=== PATIENT | male | born 1975 | race Caucasian/White ===

== ENCOUNTER 2023-05-08 08:30 | Emergency (ER) | payer BC, SELFPAY ==
--- NOTE | ~2023-05-08 | XR_ITS ---
AP and oblique views of the right ribs, and PA chest radiograph Clinical History: Pain Findings: No rib fracture is seen. Osseous alignment is anatomic. Lungs are clear, without focal cons olidation or pleural effusion. Cardiomediastinal contour is within normal limits. Soft tissues are un remarkable. Impression: No rib fracture is seen. Reviewed, dictated and finalized at [facility]. URAL CENTRE MANAGER Impression: No rib fracture is seen.
--- NOTE | 2023-05-08 08:32 | ED.SOB ---
HPI - SOB/Dyspnea General Chief Complaint: Fall Stated Complaint: Rib pain;Hard to breath Time Seen by Provider: 05/08/23 08:32 Source: patient Mode of arrival: ambulatory Limitations: no limitations History of Present Illness HPI Narrative: Jacobo is a 48-year-old male patient presenting to the clinic today with complaints of right rib pain and difficulty breathing x1 day. He reports he was playing football with his teenagers yesterday and he fell and landed on his right ribs. Reports right anterior and lateral rib pain. Rates his pain 12/03. Related Data Home Medications Medication Instructions Recorded Confirmed enalapril maleate 20 mg tablet 20 mg PO DAILY 04/21/21 05/08/23 (Vasotec) escitalopram oxalate 20 mg tablet 20 mg PO DAILY 05/08/23 05/08/23 valsartan 320 1 tablet PO DAILY 05/08/23 05/08/23 mg-hydrochlorothiazide 25 mg tablet Allergies Allergy/AdvReac Type Severity Reaction Status Date / Time No Known Allergies Allergy Verified 05/08/23 08:34 Review of Systems Review of Systems: Pertinent positives per HPI. Patient denies any fever, chills, rash, headache, visual changes, dizziness, cough, runny nose, sore throat, chest pain, palpitations, nausea, vomiting, diarrhea, constipation, abdominal pain, or any urinary issues. [facility] Family History Family History Father Alcoholism Depression Anxiety Cerebrovascular accident Mother Hypertension Depression Anxiety Grandparent Cancer Social History Social History Smoking status: Never smoker Alcohol intake: current Substance use: never Comments At the time of my signature, I reviewed and agree with the nursing past medical, surgical, social, and family history. There is no relevant family history pertinent to the patient complaint. Exam Narrative: General: Well-developed, well nourished, in no apparent distress Head: Normocephalic, atraumatic Eyes: Pupils equally round and reactive to light bilaterally, EOM intact, sclera and conjunctive clear, no discharge, lids normal Ears: TMs intact and clear, ear canals clear, no drainage, grossly hearing normal. Nose: Nares patent, no discharge, no inflammation, no sinus tenderness. Mouth: Oropharynx without lesions or masses, good dentition, MMM. Neck: Supple, trachea midline, no enlargement of anterior or posterior cervical nodes, no thyroid masses or goiter palpable. Chest wall: No swelling or bruising noted, even rise and fall of the chest wall with respirations, tender to palpation over the right anterior and lateral chest wall. Cardio: Regular rate and rhythm, s1 and s2 normal, no murmur appreciated. Resp: Clear to auscultation bilaterally anteriorly and posteriorly, no rhonchi, rales, wheezing or rubs Course Course Emergency Course: Portions of this record may have been created with voice recognition software. Level of Care: Express Care Visit Vital Signs Vital signs: Vital signs reviewed MDM - SOB/Dyspnea MDM Narrative Medical decision making narrative: At the time of visit patient is resting comfortably on exam table. Right rib x-ray was completed and was negative for any sign of fracture or malalignment. I suspect patient has a rib contusion. Supportive measures were discussed with the patient he voiced understanding discharge instructions and agrees to treatment plan. Differential Diagnosis Differential diagnosis: Likely other (Pneumothorax, rib fracture, rib contusion, pneumonia, pleurisy) Imaging Data Radiologist's impression: ITS Impressions Ribs w/Chest X-Ray 05/08/23 09:05 Impression: No rib fracture is seen. Discharge Plan Discharge Clinical Impression: Contusion of rib on right side Qualifiers: Encounter type: initial encounter Qualified Code(s): S20.211A - Contusion of right front wall of thorax, i
[2023-05-08 08:43] VITALS: BP 174/118; PULSE 76; RESP 16; TEMP 36.6; O2SAT 98
== END 2023-05-08 09:15 | disposition home or self-care (01) ==
PROVIDERS: Emergency Provider Nurse Practitioner Family; PCP Physician Assistant
DX: S20.211A Contusion of right front wall of thorax, initial encounter (principal); W19.XXXA Unspecified fall, initial encounter; Y93.61 Activity, american tackle football; E78.00 Pure hypercholesterolemia, unspecified; I10 Essential (primary) hypertension
CPT/HCPCS: 71101; 99213; G0463

== ENCOUNTER 2024-07-15 08:41 | Outpatient (CLI) | payer BC, SELFPAY ==
--- NOTE | ~2024-07-15 | US_ITS ---
Limited Abdominal Sonogram: Real-time sonographic imaging of the right upper quadrant was performed. Clinical History: Fatty liver Findings: The liver appears echogenic, with no evidence of mass lesion or bile duct dilatation. It m easures 23 cm in length. Main portal vein demonstrates normal direction of flow. The gallbladder is w ell distended, and appears normal with no evidence of gallstone or wall thickening. The common bile d uct measures 5 mm. The visualized pancreas, aorta, and IVC are unremarkable. Impression: Diffuse fatty infiltration of liver, with associated hepatomegaly. Reviewed, dictated and finalized at location M. L GEAR GENERATOR OPERATOR Impression: Diffuse fatty infiltration of liver, with associated hepatomegaly.
--- NOTE | ~2024-07-15 | US_ITS ---
EXAMINATION: US retroperitoneal duplex ltd DATE: 07/15/2024 09:04 INDICATION: Hypertension. TECHNIQUE: Multiple grayscale, color Doppler, and pulsed Doppler images of the kidneys and renal tahir ekta were obtained. COMPARISON: None. FINDINGS: The aorta peak systolic velocity is 87 cm/s. The right renal artery peak systolic velocity is 38 cm/s in the proximal segment, 52 cm/s in the mid segment, and 53 cm/s in the distal segment. The left sukhjinder al artery peak systolic velocity is 59 cm/s in the proximal segment, 35 cm/s in the mid segment, and 48 cm/s in the distal segment. IMPRESSION: 1. No Doppler evidence of renal artery stenosis. Reviewed, dictated and finalized at location B. ICE AIDE
== END 2024-07-15 08:42 | disposition home or self-care (01) ==
PROVIDERS: PCP Physician Assistant; Visit Provider Physician Assistant
DX: K76.0 Fatty (change of) liver, not elsewhere classified (principal); I10 Essential (primary) hypertension
CPT/HCPCS: 76705; 93976

== ENCOUNTER 2025-02-11 01:20 | Day surgery (SDC) | payer BC, SELFPAY ==
[2025-01-30 12:05] VITALS: BMI 32.8
--- OUTSIDE RECORDS SUMMARY | 2025-02-11 01:24 | XMS_ITS | Encounter Summary ---
Author Organization [facility] Address 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 TOBACCO USE Patient does not currently use tobacco. MEDICATIONS: Patient is taking no medications at present. CHIEF COMPLAINT bump on base of penis x 1 1/2 wks, (R) shoulder pain x 1 1/2 mos. 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 Sxs havenow returned and would likle to get them treated HISTORY OF PRESENT ILLNESS: PAIN: Pain noted in the right shoulder. Date of onset is uncertain. There was no bruising. The symptoms have been worsening recently. The pain is described as aching, dull. The pain is described as occurring at night with inability to sleep. Stiffness is present with inactivity, with prolonged sitting. Moderate weakness present. The patient notes limitation of normal daily activities often. Symptoms are aggravated by extension. Pain modifying factors not noted. CURRENT PROBLEM LIST: 786.50 CHEST PAIN UNSPECIFIED V17.3 FAMILY HISTORY OF ISCHEMIC HEART DISEASE V18.0 FAMILY HISTORY OF DIABETES MELLITUS V70.0 ROUTINE GENERAL MEDICAL EXAMINATION CURRENT MEDICATION LIST: CURRENT ALLERGY LIST: NKDA ROS: GENERAL: Normal activity and energy level, no change in appetite. No major weight gain or loss. No malaise, chills, fever, diaphoresis. CARDIAC: No chest pain, palpitations, orthopnea, dyspnea on exertion, or paroxysmal nocturnal dyspnea. RESPIRATORY: No dyspnea, cough, hemoptysis or wheezing. SKIN/BREAST/CHEST: See HISTORY OF PRESENT ILLNESS. GI: No abdominal pain, nausea, vomiting, diarrhea, constipation, melena, or hematochezia. MUSCULOSKELETAL: See HISTORY OF PRESENT ILLNESS. SOCIAL HISTORY: TOBACCO USE: Has no significant smoking history. PHYSICAL EXAMINATION: CONSTITUTIONAL: GENERAL APPEARANCE: Healthy appearing patient in no distress. EARS, NOSE, MOUTH AND THROAT: ORAL: Inspection of gums, lips, palate, and teeth normal. No scars, lesions, or masses. Oral mucosa unremarkable with non-inflamed posterior pharynx. NECK/THYROID: Trachea midline. No thyroid enlargement, tenderness, or mass. No supraclavicular or cervical adenopathy. RESPIRATORY: Clear to auscultation and percussion. Normal respiratory effort. CARDIOVASCULAR: CARDIAC: Regular rhythm. No murmurs, rubs, or gallops. EDEMA/VARICOSITIES OF EXTREMITIES: No edema or varicosities. LYMPHATICS: No lymphadenopathy in the neck, no supraclavicular lymphadenopathy noted. MUSCULOSKELETAL EXAM: EXTREMITIES: RIGHT UPPER: SUBACROMIUM BURSA TENDERNESS NOTED, SUBDELTOID BURSA TENDERNESS NOTED, full shoulder abduction, full shoulder extension, full shoulder flexion, REDUCED SHOULDER EXTERNAL ROTATION, REDUCED SHOULDER INTERNAL ROTATION. SKIN: RASH/LESION #1 LOCATION: Genitalia. CHARACTERISTICS: The lesion is flesh colored. The rash is papular. The lesion border is asymmetrical. The lesion surface is raised. The lesions are grouped. ASSESSMENT Lesion of uncertain type. hpv TREATMENT Cryotherapy was performed. BIOPSY/LESION: Liquid nitrogen cryotherapy was recommended. The procedure, including risks and potential complications, such as infection, scarring, blistering and hypopigmentation was explained. Thepatient understood and wished to proceed with treatment. The lesion was treated with liquid nitrogen resulting in freezing of the entire lesion and 1-2 mm of surrounding skin. ASSESSMENT/PLAN: 078.11-OTHER DISEASES DUE TO VIRUSES AND CHLAMYDIAE ASSESSMENT: The risks and potential complications of the procedure were discussed with the patient,including blister formation, infection and hypopigmentation. Liquid nitrogen was then applied to the lesion. LAB ORDERS: Order number: [id number] Test Ordered: DESTRUCTION BENIGN LESIONS UP TO 14 30369 719.41-PAIN JOINT SHOULDER ASSESSMENT: The patient's shoulder pain has worsened. Will start medication for better control. will begin lodine and start PT. foster need MRI [place] VISIT : [place] [id number] Electronically Signed by: Derick العراقي DO on April documented in this encounter Plan of Treatment Not on file documented as of this encounter Visit Diagnoses Not on filedocumented in this encounter Care Teams Medicine Technologist Relationship Specialty Start Date End Date Benito Encarnacion MD [address] [place] [address] PCP - General 08/22/06 documented as of this encounter
--- OUTSIDE RECORDS SUMMARY | 2025-02-11 01:24 | XMS_ITS | Encounter Summary ---
Author Organization [facility] Address [address] [place] [address] Care Team Providers Care Tax Associate Name Role Phone Benito Encarnacion MD Primary Care Provider [phone] Encounter Details Date Type Department Care Team (Late st Contact Info) Description 05/24/2007 Outpatient Historical [facility] Internal Medicine 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 MOTEL KEEPER Gender Identity Not on file Sexual Orientation Not on file documented as of this encounter Last Filed Vital Signs Vital Sign Reading Time Taken Comments Blood Pressure - - Pulse - - Temperature - - Respiratory Rate - - Oxygen Saturation - - Inhaled Oxygen Concentration - - Weight 108 kg (238 lb) 05/24/2007 9:15 AM MOTEL KEEPER Height - - Body Mass Index - - documented in this encounter Plan of Treatment Not on file documented as of this encounter Visit Diagnoses Not on filedocumented in this encounter Care Teams Tax Associate Relationship Specialty Start Date End Date Benito Encarnacion MD [address] [place] [address] PCP - General 08/22/06 documented as of this encounter
--- OUTSIDE RECORDS SUMMARY | 2025-02-11 01:24 | XMS_ITS | Encounter Summary ---
Author Organization [facility] Address [address] [place] [address] Care Team Providers Care Assembler For Puller Over Hand Name Role Phone Benito Encarnacion MD Primary Care Provider Encounter Details Date Type Department Care Team (Late st Contact Info) Description 05/29/2007 Outpatient Historical [facility] Internal Medicine [address] [place] [address] Derick العراقي DO [address] [place] [address] Social History Tobacco Use Types Packs/Day Years Used Date Smoking Tobacco: Never Assessed Sex and Gender Information Value Date Recorded Sex Assigned at Not on file Legal Sex Male 2:39 AM COMBATANT DIVER QUALIFIED Gender Identity Not on file Sexual Orientation Not on file documented as of this encounter Plan of Treatment Not on file documented as of this encounter Visit Diagnoses Not on filedocumented in this encounter Care Teams Assembler For Puller Over Hand Relationship Specialty Start Date End Date Benito Encarnacion MD [address] [place] [address] PCP - General 08/22/06 documented as of this encounter
--- OUTSIDE RECORDS SUMMARY | 2025-02-11 01:25 | XMS_ITS | Encounter Summary ---
Author Organization [facility] Address [address] [place] [address] Care Team Providers Care Medical Support Assistant Name Role Phone Benito Encarnacion MD Primary Care Provider [phone] Encounter Details Date Type Department Care Team (Late st Contact Info) Description 09/01/2008 Outpatient Historical [facility] [address] [place] [address] [address] [place] [address] Derick العراقي, DO [address] 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
--- OUTSIDE RECORDS SUMMARY | 2025-02-11 01:25 | XMS_ITS | Patient Health Record ---
Author Organization Formerly [facility] [place] ([address]) Address [address] [place] [address] Care Team Providers Care Terminal Gauger Name Role Phone SedamichaelCherelle Primary Care Provider Sasha Edwards Unavailable [phone] Allergies No Known Allergies Reason For Referral No Information Medications Medication SIG (Take, Route, Frequency, Duration) Notes Start Date End Date Status Amoxicillin-Pot Clavulanate 875-125 MG 1 tablet Orally every 12 hrs; Duration: 10 days 07/17/2024 Active Valsartan-hydroCHLOROthiazid e 160-12.5 MG 1 tablet Orally Once a day Active Colchicine 0.6 MG Oral; Duration: 3 Days Active Triamcinolone Acetonide 0.5 % External; Duration: 30 Days Active Cetirizine HCl 10 MG 1 tablet Orally Onc e a day; Duration: 30 days 07/17/2024 Active Fluticasone Propionate 50 MCG/ACT 2 sprays in each nostril Nasally Twice a day; Duration: 30 days 07/17/2024 Active Social History Tobacco Use: Social History Observation Description Date Details (start date - stop date) Never Smoker NA - NA Tobacco Control (Standard) Question Answer Notes Tobacco use: Nonsmoker Section Notes: manages insurance offices Problems Problem Type SNOMED Code ICD Code Onset Dates Problem Status W/U Status Risk Notes Problem Chronic allergic conjunctivitis (65851355) Other chronic allergic conjunctivitis (H10.45) Active confirmed Problem Essential hypertension (35708348) Essential (primary) hypertension (I10) Active confirmed Problem Allergic rhinitis (94789463) Other allergic rhinitis (J30.89) Active confirmed Problem Allergic rhinitis caused by animal hair and dander (879155080872144) Allergic rhinitis due to animal (cat) (dog) hair and dander (J30.81) Active confirmed Problem Atopic dermatitis (11889908) Atopic dermatitis, unspecified (L20.9) Active confirmed Vital Signs Blood pressure diastolic 149 mm Hg 07/17/2024 Oximetry 97 % 07/17/2024 Height 73.5 in 07/17/2024 Blood pressure systolic 213 mm Hg 07/17/2024 Weight 278.0 lbs 07/17/2024 BMI 36.18 kg/m2 07/17/2024 Encounters Encounter Location Date Provider Diagnosis [facility] [address] [facility] [address] [place] [address] 07/17/2024 Sasha Galloway Dermatitis, unspecified L30.9 ; Insect bite (nonvenomous) of left forearm, initial encounter S50.862A ; Allergic rhinitis due to animal (cat) (dog) hair and dander J30.81 ; Other allergic rhinitis J30.89 and Essential (primary) hypertension I10 Assessments Encounter Date Diagnosis (ICD Code) Assessment Notes Treatment Notes Treatment Clinical Notes Section Notes 07/17/2024 Dermatitis, unspecified (ICD-10 - L30.9) Unclear cause for pruritic dermatitis on his back. Recommend eczema treatment and if no improvement needs f/u with his Linting Machine Operator. We discussed daily bathing with Dove sensitive skin soap. Vanicream or CeraVe products to be used for moisturizers. Avoid all fragrant products. Start applying triamcinolone BID. He has multiple tubes at home. 07/17/2024 Insect bite (nonvenomous) of left forearm, initial encounter (ICD-10 - S50.862A) no improvement with topical steroids and appears to be infected. No drainage or abscess present. Start Augmentin and instructed to call the office if site on his arm does not improve 07/17/2024 Allergic rhinitis due to animal (cat) (dog) hair and dander (ICD-10 - J30.81) Given the history and symptoms, skin testing was performed to common aeroallergens to determine atopic status. clearly suffers from atopic disease based upon our skin testing and clinical history. Accordingly, we have introduced a new, aggressive medication regimen, discussed nasal washes and allergy-specific avoidance measures. We also discussed adjunctive therapies including subcutaneous, specific allergen immunotherapy as relates to the treatment and prevention of atopic disease. Before skin testing we discussed insurance deductible and out of pocket costs for skin testing. 07/17/2024 Other allergic rhinitis (ICD-10 - J30.89) 07/17/2024 Essential (primary) hypertension (ICD-10 - I10) BP elevated today and improved on repeat. did not take his blood pressure medications this am. We discussed regularly taking blood pressure medications and f/u with PCP. 07/17/2024 Other Plan Of Treatment No Information Insurance Providers Payer Name Payer Address Payer Phone Subscriber Number Group Number Insured Name Patient Relationship to Insured Coverage Start Date Coverage End Date [facility] [address] [place] [address] [id number] [place], Self - patient is the insured Medical (General) History Medical History History ICD Code Hypertension Depression Gout Surgical History Surgery Date(Month/Year) appendectomy 2000 Hospitalization History Reason Date(Month/Year) see above
--- OUTSIDE RECORDS SUMMARY | 2025-02-11 01:25 | XMS_ITS | Encounter Summary ---
Author Organization [facility] Address [address] [place] [address] Care Team Providers Care Woven Label Designer Name Role Phone Benito Encarnacion MD Primary Care Provider [phone] Encounter Details Date Type Department Care Team (Late st Contact Info) Description 08/22/2006 Outpatient Historical [facility] Mely Quinn MD [address] [place] [address] Scrotal Varices (Primary Dx) Social History Tobacco Use Types Packs/Day Years Used Date Smoking Tobacco: Never Assessed Sex and Gender Information Value Date Recorded Sex Assigned at Not on file Legal Sex Male 2:39 AM BAG MACHINE HELPER Gender Identity Not on file Sexual Orientation Not on file documented as of this encounter Plan of Treatment Not on file documented as of this encounter Procedures Procedure Name Priority Date/Time Associated Diagnosis Comments TESTOSTERONE FREE AND WEAKLY BOUND Routine 08/22/2006 9:41 AM BAG MACHINE HELPER LUTEINIZING HORMONE Routine 08/22/2006 9 :41 AM BAG MACHINE HELPER FSH Routine 08/22/2006 9:41 AM BAG MACHINE HELPER documented in this encounter Results * (ABNORMAL) TESTOSTERONE FREE AND WEAKLY BOUND (08/22/2006 9:41 AM BAG MACHINE HELPER) ALBUMIN (REF LAB) 4.5 3.7 - 5.1 g/dL INTERFACE SYSTEM Comment: Lab test performed by: [facility] [address] [address] [address] SHARON STARK MD TESTOSTERONE 181(L) 241 - 827 ng/dL INTERFACE SYSTEM Comment: Lab test performed by: [facility] [address] [place] [address] [address] SHARON STARK MD SEX HORMONE BINDING GLOBULIN 8 5 - 49 nmol/L INTERFACE SYSTEM TESTOSTERONE FREE 67 34 - 194 pg/mL INTERFACE SYSTEM TESTOSTERONE, FREE AND WEAKLY BOUND 138 84 - 402 ng/dL INTERFACE SYSTEM Comment: Lab test performed by: [facility] [address] [place] [address] DR SHARON STARK MD 08/22/2006 9:41 AM BAG MACHINE HELPER Mely Quinn MD CHEMISTRY ORDERABLES COM Deep belkis Performing Organization Address [facility] Phone Number INTERFACE SYSTEM Refer to clinic/hospital department * LUTEINIZING HORMONE (08/22/2006 9:41 AM BAG MACHINE HELPER) LUTEINIZING HORMONE 2.0 1.7 - 8.6 mIU/mL INTERFACE SYSTEM Comment: Luteinizing Hormone Reference Range: Female: Normal Menstruating Female Follicular Phase 2.4 - 12.6 mIU/mL Ovulation Phase 14.0 - 95.6 mIU/mL Luteal Phase 1.0 - 11.4 mIU/mL Post Menopausal 7.7 - 58.5 mIU/mL Children less than 1 year old: Call laboratory for reference range. 08/22/2006 9:41 AM BAG MACHINE HELPER us Mely Quinn MD CHEMISTRY ORDERABLES Edited Performing Organization Address [facility] Co de Phone Number INTERFACE SYSTEM Refer to clinic/hospital department * FSH (08/22/2006 9:41 AM BAG MACHINE HELPER) FSH 2.6 1.5 - 12.4 mIU/mL INTERFACE SYSTEM Comment: FSH Reference Range: Female: Normally Menstruating Female Follicular Phase 3.5 - 12.5 mIU/mL Ovulation Phase 4.7 - 21.5 mIU/mL Luteal Phase 1.7 - 7.7 mIU/mL Post Menopausal 25.8 - 134.8 mIU/mL Children less than 1 year old: Call laboratory for reference range. 08/22/2006 9:41 AM BAG MACHINE HELPER us Mely Quinn MD CHEMISTRY ORDERABLES Edited INTERFACE SYSTEM Refer to clinic/hospital department documented in this encounter Visit Diagnoses Diagnosis Scrotal varices- Primary documented in this encounter Care Teams Woven Label Designer Relationship Specialty Start Date End Date Benito Encarnacion MD [address] [place] [address] PCP - General 08/22/06 documented as of this encounter
--- OUTSIDE RECORDS SUMMARY | 2025-02-11 01:25 | XMS_ITS | Clinical Summary ---
Author Organization [facility] [place] [address] Address [address] [place] [address] Care Team Providers Care Spray Crew Name Role Phone Cherelle Del Angel Primary Care Pr ovider Allergies No known active allergies Medications colchicine (COLCRYS) 0.6 mg capsule Take 1 capsule (0.6 mg total) by mouth daily 7 capsule 4 Active Additional Information Patient taking differently:0.6 mg oralAs needed, muscle/joint pain, Reported on 10/06/2024 carvediloL (COREG) 12.5 mg tablet Take 1 tablet (12.5 mg total) by mouth 2 (two) times a day with meals 5 Active escitalopram (LEXAPRO) 20 mg tablet Take 1 tablet (20 mg total) by mouth daily Active valsartan-hydro chlorothiazide (DIOVAN-HCT) 320-25 mg per tablet Take 1 tablet by mouth daily Active allopurinoL (ZYLOPRIM) 300 mg tablet Take 1 tablet (300 mg total) by mouth daily Active Active Problems No known active problems Social History Tobacco Use Types Packs/Day Years Used Date Smoking Tobacco: Never Assessed Personal Safety Answer Date Recorded Have you ever been in or are you currently in a harmful physical or emotional relationship or is someone making you feel afraid or unsafe? 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 Gender Identity Not on file Sexual Orientation Not on file Last Filed Vital Signs Vital Sign Reading Time Taken Comments Blood Pressure 193/129 10/06/2024 9:22 AM CDT Pulse 82 10/06/2024 9:22 AM CDT Temperature 36.3 C (97.4 F) 10/06/2024 9:22 AM CDT Respiratory Rate 18 10/06/2024 9:22 AM CDT Oxygen Saturation 94% 10/06/2024 9:22 AM CDT Inhaled Oxygen Concentration - - Weight 125.2 kg (276 lb) 10/06/2024 9:22 AM CDT Height 185.4 cm (6' 1.01) 10/06/2024 9:22 AM CD T Body Mass Index 36.4 10/06/2024 9:22 AM CDT Plan of Treatment Health Maintenance Due Date Last Done Comments Colon Cancer Screening-Colonoscopy 1976 Depression Screening 1976 Hepatitis C Screening 1976 DTaP/Tdap/Td Vaccine (1 - Tdap) 1987 Hepatitis B Screening 1994 Regular Well Visit/Exam 18-64 1994 Influenza Vaccine (#1) 2025 Pneumococcal vaccine <65 Aged Out No longer eligible based on patient's age to complete this topic Insurance [employer] [place] [employer] [place] [employer] [place] P[place] Care Teams Spray Crew Relationship Specialty Start Date End Date Cherelle Del Angel PA PCP - General Physician Organizational Development Manager 02/11/21
--- OUTSIDE RECORDS SUMMARY | 2025-02-11 01:25 | XMS_ITS | Clinical Summary ---
Author Organization [facility] Address [address] [place] [address] Care Team Providers Care Family Counselor Name Role Phone Benito Encarnacion MD Primary Care Provider [phone] Medications ALDARA 5 % Topical Pack apply 3 times a week at hs and leave on for 6 - 10 hrs 0.00 3 05/24/2007 Active LODINE 300 mg Oral Cap 1 Two Times A Day 60.00 0 05/24/2007 Active Active Problems Problem Noted Date Diagnosed Date Condyloma acuminatum 05/24/2007 Pain in joint, shoulder region 05/24/2007 Routine general medical exam ination at a health care facility 04/26/2007 Family history of ischemic heart disease 007 Family history of diabetes mellitus 04/26/2007 Chest pain, unspecified 04/26/2007 Social History Tobacco Use Types Packs/Day Years Used Date Smoking Tobacco: Never Assessed Sex and Gender Information Value Date Recorded Sex Assigned at Not on file 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 Gender Identity Not on file Sexual Orientation Not on file Last Filed Vital Signs Vital Sign Reading Time Taken Comments Blood Pressure - - Pulse - - Temperature - - Respiratory Rate - - Oxygen Saturation - - Inhaled Oxygen Concentration - - Weight 108 kg (238 lb) 05/24/2007 9:15 AM COMMUNICATIONS ENGINEERING TECHNICIAN Height - - Body Mass Index - - Plan of Treatment Health Maintenance Due Date Last Done Comments DTAP/TDAP/TD VACCINES (1 - Tdap) 1995 HEPATITIS B VACCINES (1 of 3 - 19+ 3-dose series) 10/1994 COLORECTAL SCREENING 2021 Colorectal Cancer Screening 2021 FIT-DNA Q 3 years 2021 FIT/FOBT Q 1 year 2021 Flex Sig/CT Colonography Q 5 years 2021 INFLUENZA VACCINE (#1) [address] [place] [id number] [facility] OPT[employer] PPO [id number] Care Teams Family Counselor Relationship Specialty Start Date End Date Benito Encarnacion MD [address] [place] [address] PCP - General 08/22/06
--- OUTSIDE RECORDS SUMMARY | 2025-02-11 01:26 | XMS_ITS | Encounter Summary ---
Author Organization [facility] Address [address] [place] [address] Care Team Providers Care Administrative Support Clerk Name Role Phone Benito Encarnacion MD Primary Care Provider [phone] Encounter Details Date Type Department Care Team (Late st Contact Info) Description 04/26/2007 Outpatient Historical [facility] Internal Medicine 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
--- OUTSIDE RECORDS SUMMARY | 2025-02-11 01:26 | XMS_ITS | Encounter Summary ---
Author Organization [facility] Address [address] [place] [address] Care Team Providers Care Recreation Supervisor Name Role Phone Benito Encarnacion MD Primary Care Provider [phone] Encounter Details Date Type Department Care Team (Late st Contact Info) Description 04/26/[address] [facility] Internal Medicine 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
--- OUTSIDE RECORDS SUMMARY | 2025-02-11 01:26 | XMS_ITS | Encounter Summary ---
Author Organization [facility] Address 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
[2025-02-11 07:30] VITALS: BP 155/92; PULSE 97; RESP 18; TEMP 36.3; O2SAT 96
--- NOTE | 2025-02-11 09:39 | SUR.PREOP ---
0735: PT STATES HE ATE FULL LUNCH WITH A GYRO 02/10/25, THEN AT 1500 HE STARTED BOWEL PREP AND CLEAR LIQUID DIET. PT STATES STOOLS ARE CLEAR LIQUID. DR AGUIRRE NOTIFIED AND WILL TALK TO PT. PT DECIDED TO DISCHARGE AT THIS TIME AND RESCHEDULE PROCEDURE. PT STATES HE IS AFRAID HE WILL NOT BE CLEAR ENOUGH FOR THE PROCEDURE AND WOULD LIKE TO RESCHEDULE AND FOLLOW BOWEL PREP CORRECTLY AT THAT TIME. PT DISCHARGED.
== END 2025-02-11 07:45 | disposition home or self-care (01) ==
PROVIDERS: PCP Physician Assistant; Visit Provider Surgery
PROC: 0DJD8ZZ Inspection of Lower Intestinal Tract, Via Natural or Artificial Opening Endoscopic (ICD-10-PCS; CPT 45378; principal; 2025-02-11 08:30)
DX: Z12.11 Encounter for screening for malignant neoplasm of colon (principal); Z53.8 Procedure and treatment not carried out for other reasons
CPT/HCPCS: 99212; G0463